=== PATIENT | female | born 1995 | race Caucasian/White ===

== ENCOUNTER 2017-08-10 15:14 | Observation (INO) ==
[2017-08-10 16:30] LABS: Bilirubin,Urine Small (Negative); Blood,Urine Moderate (Negative); Clarity,Urine Cloudy (Clear); Color,Urine Dark Yellow (Yellow); Glucose,Urine (UA) Normal (Normal); Ketones,Urine 80 mg/dL (Negative); Leukocyte Esterase,Urine Large (Negative); Nitrite,Urine Negative (Negative); Protein,Urine Negative (Neg-Trace); Specific Gravity,Urine 1.021 (1.010-1.025); Urobilinogen,Urine Normal (Normal)
[2017-08-10 16:33] LABS: Bacteria,Urine Moderate per hpf (None-Few); Hyaline Casts,Urine None Seen per lpf (None-Few); Squamous Epithelial Cell,Urine Many per lpf (None-Few); WBC,Urine 15-30 per hpf (0-3)
[2017-08-10 17:11] LABS: Basophils % 0.3 %; Eosinophils % 0.4 %; Hematocrit 32.8 % (35.3-44.9); Immature Granulocytes % 0.7 % (0-4); Lymphocytes # 0.7 K/mcL (0.6-4.6); Lymphocytes % 8.9 %; Mean Corpuscular HGB Conc 33.2 g/dL (31.6-35.5); Mean Corpuscular Hemoglobin 29.9 pg (28.0-33.3); Mean Corpuscular Volume 90.1 fL (83.0-100.0); Mean Platelet Volume 10.4 fL (9.4-12.4); Monocytes # 0.6 K/mcL (0.0-1.3); Monocytes % 8.3 %; Neutrophils # 6.1 K/mcL (1.6-8.9); Platelet Count 164 K/mcL (140-400); Red Blood Count 3.64 M/mcL (3.82-4.97); Red Cell Distribution Width 12.6 % (11.5-14.5); Segmented Neutrophils % 81.4 %
[2017-08-10 17:21] LABS: Hemoglobin 10.9 g/dL (11.5-15.4)
[2017-08-10 17:21] LABS: RBC,Urine 0-3 per hpf (0-3)
[2017-08-10 17:30] LABS: Amphetamine Screen,Urine Negative ng/mL (Cutoff=1000); Barbiturate Screen,Urine Negative ng/mL (Cutoff=200); Benzodiazepines Screen,Urine Negative ng/mL (Cutoff=200); Cannabinoid Screen,Urine Negative ng/mL (Cutoff = 50); Cocaine Screen,Urine Negative ng/mL (Cutoff= 300); Opiate Screen,Urine Negative ng/mL (Cutoff=300); Phencyclidine Screen,Urine Negative ng/mL (Cutoff=25)
--- NOTE | 2017-08-10 17:36 | OB/GYN Progress Note ---
Date of Encounter: 08/10/17 Time of Encounter: 17:33 - Assessment and Plan (1) 24 weeks gestation of Current Visit: Yes Status: Acute (2) UTI (urinary tract infection) Current Visit: Yes Status: Acute UA suspicious for UTI. Will send home on Bactrium due to allergies. - CVA tenderness. Discharged home with when to return to triage and call provider. Laboratory Results WBC 7.4 K/mcL (4.3-11.1) 08/10/17 16: RBC 3.64 M/mcL (3.82-4.97) L 08/10/17 16:26 Hgb 10.9 g/dL (11.5-15.4) L D 08/10/17 16: Hct 32.8 % (35.3-44.9) L 08/10/17 16: MCV 90.1 fL (83.0-100.0) 08/10/17 16: MCH 29.9 pg (28.0-33.3) 08/10/17 16: MCHC 33.2 g/dL (31.6-35.5) 08/10/17 16:26 RDW 12.6 % (11.5-14.5) 08/10/17 16:26 Plt Count 164 K/mcL (140-400) 08/10/17 16: MPV 10.4 fL (9.4-12.4) 08/10/17 16: Immature Gran % 0.7 % (0-4) 08/10/17 16: Seg Neutrophils % 81.4 % 08/10/17 16: Lymphocytes % 8.9 % 08/10/17 16: Monocytes % 8.3 % 08/10/17 16:26 Eosinophils % 0.4 % 08/10/17 16: Basophils % 0.3 % 08/10/17 16: Neutrophils # 6.1 K/mcL (1.6-8.9) 08/10/17 16: Lymphocytes # 0.7 K/mcL (0.6-4.6) 08/10/17 16: Monocytes # 0.6 K/mcL (0.0-1.3) 08/10/17 16: Eosinophils # 0.0 K/mcL (0.0-0.6) 08/10/17 16:26 Basophils # 0.0 K/mcL (0.0-0.2) 08/10/17 16:26 Urine Color Dark Yellow (Yellow) 08/10/17 Unknown Urine Clarity Cloudy (Clear) A 08/10/17 Unknown Urine pH 6.0 pH Units (5.0-8.0) 08/10/17 Unknown Ur Specific [place] 1.021 (1.010-1.025) 08/10/17 Unknown Urine Protein Negative mg/dL (Neg-Trace) 08/10/17 Unknown Urine Glucose (UA) Normal mg/dL (Normal) 08/10/17 Unknown Urine Ketones 80 mg/dL (Negative) H 08/10/17 Unknown Urine Blood Moderate (Negative) H 08/10/17 Unknown Urine Nitrite Negative (Negative) 08/10/17 Unknown Urine Bilirubin Small (Negative) H 08/10/17 Unknown Urine Urobilinogen Normal mg/dL (Normal) 08/10/17 Unknown Ur Leukocyte Esterase Large (Negative) H 08/10/17 Unknown Urine Microscopic RBC 0-3 per hpf (0-3) 08/10/17 Unknown Urine Microscopic WBC 15-30 per hpf (0-3) H 08/10/17 Unknown Ur Squamous Epith Cells Many per lpf (None-Few) H 08/10/17 Unknown Urine Bacteria Moderate per hpf (None-Few) H 08/10/17 Unknown Hyaline Casts None Seen per lpf (None-Few) 08/10/17 Unknown Ur Culture Indicated? NO. (NO) 08/10/17 Unknown Urine Opiates Screen Negative ng/mL (Ifsbig=190) 08/10/17 Unknown Ur Barbiturates Screen Negative ng/mL (Ddmuyv=749) 08/10/17 Unknown Ur Phencyclidine Scrn Negative ng/mL (Cutoff=25) 08/10/17 Unknown Ur Amphetamines Screen Negative ng/mL (Ecqlwe=0525) 08/10/17 Unknown U Benzodiazepines Scrn Negative ng/mL (Jjffba=001) 08/10/17 Unknown Urine Cocaine Screen Negative ng/mL (Cutoff= 300) 08/10/17 Unknown U Marijuana (THC) Screen Negative ng/mL (Cutoff = 50) 08/10/17 Unknown Qualifiers: Urinary tract infection type: acute cystitis Hematuria presence: with hematuria Qualified Code(s): N30.01 - Acute cystitis with hematuria Subjective - Subjective Interval history: GP0 24+1 Sent over from office for evaluation of pyelo. Reports occasional movement, denies vaginal bleeding or leaking of fluid. Pt states she has had increased back pain with nausea. No pain or burning with urination. Antepartum ROS: movement normal, no loss of fluid, no vaginal bleeding, no contractions Objective - Vital Signs Vital Signs: Intake and Output 08/10/17 08/10/17 08/10/17 07:59 15:59 23:59 Other: Weight 59.4 kg Patient Weight 08/10/17 23:59 Weight 59.4 kg - Exam FHR: auscultation normal FHR comments: baseline 145 Abdomen: Present: normal appearance, soft, gravid Cervical dilation: Closed Comments: - cva tenderness. - Labs Labs: Abnormal lab results RBC 3.64 M/mcL (3.82-4.97) L 08/10/17 16:26 Hgb 10.9 g/dL (11.5-15.4) L D 08/10/17 16:26 Hct 32.8 % (35.3-44.9) L 08/10/17 16:26 Urine Clarity Cloudy (Clear) A 08/10/17 Unknown Urine Ketones 80 mg/dL (Negative) H 08/10/17 Unknown Urine Blood Moderate (Negative) H 08/10/17 Unknown Urine Bilirubin Small (Negative) H 08/10/17 Unknown Ur Leukocyte Esterase Large (Negative) H 08/10/17 Unknown Urine Microscopic WBC 15-30 per hpf (0-3) H 08/10/17 Unknown Ur Squamous Epith Cells Many per lpf (None-Few) H 08/10/17 Unknown Urine Bacteria Moderate per hpf (None-Few) H 08/10/17 Unknown
== END 2017-08-10 17:45 | disposition home or self-care (01) ==
LOC: 1NENULAB
PROVIDERS: ADMIT Obstetrics & Gynecology; ATTEND Obstetrics & Gynecology

== ENCOUNTER 2017-08-29 01:08 | Observation (INO) ==
[2017-08-29 01:56] LABS: Bilirubin,Urine Negative (Negative); Blood,Urine Negative (Negative); Clarity,Urine Cloudy (Clear); Color,Urine Yellow (Yellow); Glucose,Urine (UA) 100 mg/dL (Normal); Ketones,Urine Negative (Negative); Leukocyte Esterase,Urine Large (Negative); Nitrite,Urine Negative (Negative); PH,Urine 6.5 pH Units (5.0-8.0); Protein,Urine Trace mg/dL (Neg-Trace); Specific Gravity,Urine 1.021 (1.010-1.025); Urobilinogen,Urine Normal (Normal)
[2017-08-29 02:00] LABS: Bacteria,Urine Moderate per hpf (None-Few); Hyaline Casts,Urine None Seen per lpf (None-Few); Squamous Epithelial Cell,Urine Many per lpf (None-Few); WBC,Urine 50-100 per hpf (0-3)
[2017-08-29 02:05] LABS: Amphetamine Screen,Urine Negative ng/mL (Cutoff=1000); Barbiturate Screen,Urine Negative ng/mL (Cutoff=200); Benzodiazepines Screen,Urine Negative ng/mL (Cutoff=200); Cannabinoid Screen,Urine Negative ng/mL (Cutoff = 50); Cocaine Screen,Urine Negative ng/mL (Cutoff= 300); Opiate Screen,Urine Negative ng/mL (Cutoff=300); Phencyclidine Screen,Urine Negative ng/mL (Cutoff=25)
--- NOTE | 2017-08-29 02:05 | OB/GYN Progress Note ---
Date of Encounter: 08/29/17 Time of Encounter: 02:03 - Assessment and Plan (1) 26 weeks gestation of Current Visit: Yes Status: Acute (2) Back pain affecting in second trimester Current Visit: Yes Status: Acute History of CVA tenderness, discussed back pain during recommended position changes and Tylenol, discussed sciatic nerve pain with patient. Discharged home with when to return to triage precautions. Patient verbalizes understanding (3) Decreased movement Current Visit: Yes Status: Acute Patient has felt movement a few times since being in triage. movement heard on monitor by provider Qualifiers: Fetus number: single or unspecified fetus Trimester: second trimester Qualified Code(s): O36.8120 - Decreased movements, second trimester, not applicable or unspecified Subjective - Subjective Interval history: 26+6 presents to triage with complaints of back pain and decreased movement. 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 Patient states she is also having intermittent lower back pain and at times it radiates down her leg. Denies vaginal bleeding or leaking of fluid Antepartum ROS: other, no loss of fluid, no vaginal bleeding, no movement normal (backpain ), no contractions Objective - Vital Signs Vital Signs: Intake and Output 08/28/17 08/28/17 08/29/17 15:59 23:59 07:59 Other: Weight 62.8 kg Patient Weight 08/29/17 23:59 Weight 62.8 kg - Exam FHR: auscultation normal FHR comments: baseline 140 Abdomen: Present: soft, gravid Comments: -cva - Labs Labs: Abnormal lab results Urine Clarity Cloudy (Clear) A 08/29/17 01:44 Urine Glucose (UA) 100 mg/dL (Normal) H 08/29/17 01:44 Ur Leukocyte Esterase Large (Negative) H 08/29/17 01:44
[2017-08-29 02:14] LABS: RBC,Urine 0-3 per hpf (0-3)
== END 2017-08-29 02:09 | disposition home or self-care (01) ==
LOC: 1NENULAB
PROVIDERS: ADMIT Advanced Practice Midwife; ATTEND Advanced Practice Midwife

== ENCOUNTER 2017-09-25 02:56 | Observation (INO) ==
[2017-09-25 03:33] LABS: Bilirubin,Urine Negative (Negative); Blood,Urine Negative (Negative); Clarity,Urine Cloudy (Clear); Color,Urine Yellow (Yellow); Glucose,Urine (UA) Normal (Normal); Ketones,Urine Negative (Negative); Leukocyte Esterase,Urine Moderate (Negative); Nitrite,Urine Negative (Negative); PH,Urine 6.5 pH Units (5.0-8.0); Protein,Urine Negative (Neg-Trace); Specific Gravity,Urine 1.015 (1.010-1.025); Urobilinogen,Urine Normal (Normal)
[2017-09-25 03:35] LABS: Bacteria,Urine None Seen per hpf (None-Few); Hyaline Casts,Urine None Seen per lpf (None-Few); RBC,Urine 0-3 per hpf (0-3); Squamous Epithelial Cell,Urine Many per lpf (None-Few); WBC,Urine 15-30 per hpf (0-3)
[2017-09-25 03:42] LABS: Amphetamine Screen,Urine Negative ng/mL (Cutoff=1000); Barbiturate Screen,Urine Negative ng/mL (Cutoff=200); Benzodiazepines Screen,Urine Negative ng/mL (Cutoff=200); Cannabinoid Screen,Urine Negative ng/mL (Cutoff = 50); Cocaine Screen,Urine Negative ng/mL (Cutoff= 300); Opiate Screen,Urine Negative ng/mL (Cutoff=300); Phencyclidine Screen,Urine Negative ng/mL (Cutoff=25)
--- NOTE | 2017-09-25 04:24 | OB/GYN Progress Note ---
Date of Encounter: 09/25/17 Time of Encounter: 04:22 - Assessment and Plan (1) 30 weeks gestation of Current Visit: Yes Status: Acute (2) Abdominal pain affecting Current Visit: Yes Status: Acute UA negative, rare contractions seen on monitor. cervix closed thick and high. Discharged home with labor and when to return to triage precautions. Patient verbalizes understanding Subjective - Subjective Interval history: 30+5 weeks gestation presents to triage with complaints of abdominal pain. Patient states she has been working this evening and having abdominal pain wrapping around her abdomen at times. She says the pain feels dull and constant, but sometimes comes and goes with abdominal tightening. Patient states she has been up and active around the house today, and then came in to work. She is only had about 1 bottle of water to drink today. Reports good movement, denies vaginal bleeding or leaking of fluid Antepartum ROS: movement normal, contractions (Abdominal pain), no loss of fluid, no vaginal bleeding Objective - Vital Signs Vital Signs: Intake and Output 09/24/17 09/24/17 09/25/17 15:59 23:59 07:59 Other: Weight 64.2 kg Patient Weight 09/25/17 23:59 Weight 64.2 kg - Exam FHR: auscultation normal Abdomen: Present: normal appearance, soft, gravid Cervical dilation: Closed/thick/high - Labs Labs: Abnormal lab results Urine Clarity Cloudy (Clear) A 09/25/17 03:21 Ur Leukocyte Esterase Moderate (Negative) H 09/25/17 03:21 Urine Microscopic WBC 15-30 per hpf (0-3) H 09/25/17 03:21 Ur Squamous Epith Cells Many per lpf (None-Few) H 09/25/17 03:21 Ur Culture Indicated? NO. (NO) A 09/25/17 03:21
== END 2017-09-25 04:33 | disposition home or self-care (01) ==
LOC: 1NENULAB
PROVIDERS: ADMIT Advanced Practice Midwife; ATTEND Advanced Practice Midwife

== ENCOUNTER → 2017-10-16 16:09 | Observation (INO) ==
[2017-10-16 14:59] LABS: Basophils % 0.3 %; Eosinophils # 0.1 K/mcL (0.0-0.6); Eosinophils % 1.1 %; Hematocrit 38.3 % (35.3-44.9); Hemoglobin 12.7 g/dL (11.5-15.4); Immature Granulocytes % 0.6 % (0-4); Lymphocytes # 1.9 K/mcL (0.6-4.6); Lymphocytes % 19.8 %; Mean Corpuscular HGB Conc 33.2 g/dL (31.6-35.5); Mean Corpuscular Volume 90.5 fL (83.0-100.0); Mean Platelet Volume 10.8 fL (9.4-12.4); Monocytes # 0.9 K/mcL (0.0-1.3); Monocytes % 8.7 %; Neutrophils # 6.8 K/mcL (1.6-8.9); Platelet Count 136 K/mcL (140-400); Red Blood Count 4.23 M/mcL (3.82-4.97); Red Cell Distribution Width 13.3 % (11.5-14.5); Segmented Neutrophils % 69.5 %
--- NOTE | 2017-10-16 14:59 | OB/GYN Progress Note ---
Date of Encounter: 10/16/17 Time of Encounter: 14:56 - Assessment and Plan (1) 33 weeks gestation of Current Visit: Yes Status: Acute admitted for observation and iv hydration (2) Nausea Current Visit: Yes Status: Acute IV zofran if needed advance diet as tolerated (3) NST (non-stress test) reactive on surveillance Current Visit: Yes Status: Acute baseline 125 bpm moderate variability +15x15 accels no decels noted Subjective - Subjective Principal diagnosis: dehydration, cramping, sunburn Interval history: Patient is a 22 y/o at 33w5d presents to labor and delivery from OB office for IV hydration. Patient reports she was outside all day yesterday in the sun at [place] and today feels like she is cramping and dehydrated. Patient had sun burn on 60% of her body as well. No blisters noted. Patient reports +FM , denies LOF or VB. Patient reports nausea without vomiting. Denies headache, visual disturbances or epigastric pain. Antepartum ROS: movement normal, no loss of fluid, no vaginal bleeding, no contractions Objective - Vital Signs Vital Signs: Intake and Output 10/15/17 10/16/17 10/16/17 23:59 07:59 15:59 Other: Weight 62.6 kg Patient Weight 10/16/17 23:59 Weight 62.6 kg - Exam FHR: auscultation normal, category 1 FHR comments: FHR baseline 125 bpm moderate variability +15x15 accels no decels noted. Cat 1 tracing Auscultation: bilateral: normal Abdomen: Present: normal appearance, soft, gravid
[2017-10-16 15:05] LABS: Amphetamine Screen,Urine Negative ng/mL (Cutoff=1000); Barbiturate Screen,Urine Negative ng/mL (Cutoff=200); Benzodiazepines Screen,Urine Negative ng/mL (Cutoff=200); Cannabinoid Screen,Urine Negative ng/mL (Cutoff = 50); Cocaine Screen,Urine Negative ng/mL (Cutoff= 300); Opiate Screen,Urine Negative ng/mL (Cutoff=300); Phencyclidine Screen,Urine Negative ng/mL (Cutoff=25)
[2017-10-16 15:26] LABS: Potassium 3.5 mEq/L (3.5-5.1)
[~2017-10-16 16:09] MED LIST: Acetaminophen 325 MG TABLET PO PRN; D5% in Lactated Ringers 1,000 ML IVC SCH; Ondansetron 4 MG/2 ML VIAL IVP PRN; Ringers Solution, Lactated 1,000 ML IVC ONE
== END | disposition home or self-care (01) ==
LOC: 1NENULAB
PROVIDERS: ADMIT Advanced Practice Midwife; ATTEND Advanced Practice Midwife

== ENCOUNTER → 2017-11-03 04:40 | Observation (INO) ==
[2017-11-03 03:29] LABS: Bilirubin,Urine Negative (Negative); Blood,Urine Large (Negative); Clarity,Urine Cloudy (Clear); Color,Urine Yellow (Yellow); Glucose,Urine (UA) Normal (Normal); Ketones,Urine Negative (Negative); Leukocyte Esterase,Urine Large (Negative); Nitrite,Urine Negative (Negative); Protein,Urine Negative (Neg-Trace); Specific Gravity,Urine 1.017 (1.010-1.025); Urobilinogen,Urine Normal (Normal)
[2017-11-03 03:30] LABS: Bacteria,Urine Few per hpf (None-Few); Hyaline Casts,Urine None Seen per lpf (None-Few); RBC,Urine 15-30 per hpf (0-3); Squamous Epithelial Cell,Urine Many per lpf (None-Few)
[2017-11-03 03:38] LABS: Protein/Creatinine Ratio,Urine 0.35 mg/mg (0.00-0.20)
[2017-11-03 03:40] LABS: Amphetamine Screen,Urine Negative ng/mL (Cutoff=1000); Barbiturate Screen,Urine Negative ng/mL (Cutoff=200); Benzodiazepines Screen,Urine Negative ng/mL (Cutoff=200); Cannabinoid Screen,Urine Negative ng/mL (Cutoff = 50); Cocaine Screen,Urine Negative ng/mL (Cutoff= 300); Opiate Screen,Urine Negative ng/mL (Cutoff=300); Phencyclidine Screen,Urine Negative ng/mL (Cutoff=25)
[2017-11-03 03:43] LABS: Calcium Oxalate Crystals,Urine Present
--- NOTE | 2017-11-03 04:39 | OB/GYN Progress Note ---
Date of Encounter: 11/03/17 Time of Encounter: 04:37 - Assessment and Plan (1) 36 weeks gestation of Current Visit: Yes Status: Acute Continue care as scheduled Labor precautions given Discharge home (2) Proteinuria affecting in third trimester Current Visit: Yes Status: Acute 24 hour urine to be returned on Sunday to labor and delivery and have labs drawn (3) UTI (urinary tract infection) during Current Visit: Yes Status: Acute Macrobid 100 mg twice a day 5 days Qualifiers: Trimester: third trimester Qualified Code(s): O23.43 - Unspecified infection of urinary tract in , third trimester Subjective - Subjective Principal diagnosis: proteinuria/uti in Interval history: Ms. Nichols is a 22-year-old at 36 weeks 2 days gestation who presents with complaints of intermittent hazy vision with spots. She denies headaches and epigastric pain. She reports her blood pressures have been well controlled during this . She also complains of frequency, urgency, dysuria. She endorses good movement. Antepartum ROS: new complaints, movement normal, no loss of fluid, no vaginal bleeding, no contractions Objective - Vital Signs Vital Signs: Intake and Output 11/02/17 11/02/17 11/03/17 15:59 23:59 07:59 Other: Weight 62.6 kg Patient Weight 11/03/17 23:59 Weight 62.6 kg - Exam FHR: category 1 FHR comments: Baseline 140 Moderate variability Accelerations present 15 x 15 No decelerations FHR category I Contractions every 5-7 minutes on toco and palpate mild Auscultation: bilateral: normal Abdomen: Present: normal appearance, soft, gravid Uterus: Present: normal, firm - Labs Labs: Abnormal lab results Urine Clarity Cloudy (Clear) A 11/03/17 03:23 Urine Blood Large (Negative) H 11/03/17 03:23 Ur Leukocyte Esterase Large (Negative) H 11/03/17 03:23 Urine Microscopic RBC 15-30 per hpf (0-3) H 11/03/17 03:23 Urine Microscopic WBC 5-15 per hpf (0-3) H 11/03/17 03:23 Ur Squamous Epith Cells Many per lpf (None-Few) H 11/03/17 03:23 Ur Culture Indicated? NO. (NO) A 11/03/17 03:23 Protein/Creatinin Ratio 0.35 mg/mg (0.00-0.20) H 11/03/17 03:23
== END | disposition home or self-care (01) ==
LOC: 1NENULAB
PROVIDERS: ADMIT Obstetrics & Gynecology; ATTEND Obstetrics & Gynecology

== ENCOUNTER → 2017-11-04 03:58 | Observation (INO) ==
--- NOTE | 2017-11-04 03:50 | Discharge Summary ---
Date of Encounter: 11/04/17 Time of Encounter: 03:49 - Discharge Diagnosis (1) 36 weeks gestation of Priority: Primary Status: Acute Comments: admitted for observation (2) Decreased movement Priority: Secondary Status: Acute Comments: reactive nst Qualifiers: Fetus number: single or unspecified fetus Trimester: third trimester Qualified Code(s): O36.8130 - Decreased movements, third trimester, not applicable or unspecified (3) NST (non-stress test) reactive on surveillance Priority: Secondary Status: Acute Comments: FHR 120 bpm moderate variability +15x15 accels no decels noted. No contrations noted. Cat. 1 tracing (4) Proteinuria affecting in third trimester Priority: Secondary Status: Acute Comments: Patient returned 24 hour urine today and lab work was drawn (5) Heartburn during in third trimester Priority: Secondary Status: Acute Comments: RX for pepcid - Discharge Medications Prescriptions: Famotidine [Pepcid] 40 mg PO DAILY 30 Days #30 tablet Home Medications: Escitalopram [Lexapro] 10 mg PO DAILY #7 tablet 04/25/17 [Rx] Ondansetron ODT [Zofran ODT] 4 mg SL Q6HR PRN #10 tab.rapdis 07/15/17 [Rx] Vit/Iron Fumarate/FA [ Tablet] 1 tab PO DAILY 08/10/17 [History ] Ferrous Sulfate 11/03/17 [History] Nitrofurantoin Monohyd/M-Cryst [Macrobid 100 mg Capsule] 100 mg PO BID #10 capsule 11/03/17 [Rx] Famotidine [Pepcid] 40 mg PO DAILY 30 Days #30 tablet 11/04/17 [Rx] Allergies/Adverse Reactions: 3 Allergy/AdvReac Type Severity Reaction Status Date / Time Amoxicillin Allergy Swelling Verified 11/04/17 03:20 of Lip/Tongue/Throat azithromycin Allergy Swelling Verified 11/04/17 03:20 [From Zithromax Z-Robbin] of Lip/Tongue/Throat cephalexin [From Keflex] Allergy Swelling Verified 11/04/17 03:20 of Lip/Tongue/Throat Penicillins Allergy Hives Verified 11/04/17 03:20 prednisone Allergy Swelling Verified 11/04/17 03:20 of Lip/Tongue/Throat Data Procedures and tests throughout hospitalization: Laboratory Tests 07/08/18 03:30 Ur Drug Screen Interp See Below Labs on day of discharge: Labs from last 24 hours 11/04/17 03:30 Ur Drug Screen Interp See Below Date of admission: 11/04/17 03:08 Discharging clinician: Shanell Martines Anticipated date of discharge: 11/04/17 - Patient Status Disposition: Home, Self-Care Condition: Good Functional capacity at discharge: independent ambulation - Discharge Instructions Follow Up With: Erika Powers [Advanced Practice Nurse] - - Diet and Activity Activity: increase activity as tolerated Diet: regular diet Hospital Course [employer] Hospital course: Patient is a 22 y/o at 36w3d presents to labor and delivery to return a 24 hour urine due to an increases protein creat ratio yesterday. Patient denies any headache, dizziness or blurred vision. Patient denies any epigastric pain but does report acid reflux. Patient reports decrease in movement. Patient denies contractions, LOF or VB. Vital signs wnl. NST reactive. Time Attestation: Total time spent providing and/or coordinating discharge services: Time Spent: Less than 30 minutes Exam - Constitutional General appearance IM: A&O X 3, pleasant, answers questions appropriately - Respiratory Respiratory exam: Present: CTAB - Cardiovascular Cardiovascular exam IM: Present: RRR, +S1, +S2 - GI/Abdominal GI/Abdominal exam IM: normal bowel sounds - Additional comments: soft, gravid - Extremities Exam Extremities exam IM: Present: full ROM, normal capillary refill - Neurological Exam Neurological exam: alert, oriented X3, reflexes normal - VTE Reasons for not Prescribing Prophylaxis: Treatment not Indicated - Low risk for VTE
[2017-11-04 03:55] LABS: Amphetamine Screen,Urine Negative ng/mL (Cutoff=1000); Barbiturate Screen,Urine Negative ng/mL (Cutoff=200); Benzodiazepines Screen,Urine Negative ng/mL (Cutoff=200); Cannabinoid Screen,Urine Negative ng/mL (Cutoff = 50); Cocaine Screen,Urine Negative ng/mL (Cutoff= 300); Opiate Screen,Urine Negative ng/mL (Cutoff=300); Phencyclidine Screen,Urine Negative ng/mL (Cutoff=25)
[2017-11-04 06:16] LABS: eGFR For African Americans > 60 (> 60); eGFR For Non-African Americans > 60 (> 60)
[2017-11-04 15:24] LABS: Total Volume 24 Hour,Urine 1.72 Liters (0.60-1.60)
[2017-11-04 15:49] LABS: Protein/Creatinine Ratio,Urine 0.22 mg/mg (0.00-0.20)
== END | disposition home or self-care (01) ==
LOC: 1NENULAB
PROVIDERS: ADMIT Advanced Practice Midwife; ATTEND Advanced Practice Midwife

== ENCOUNTER 2019-07-11 00:29 | Observation (INO) ==
[2019-07-11 01:57] LABS: BUN/Creatinine Ratio 15 (6-26); Blood Urea Nitrogen 15 mg/dL (6-20); Calcium 10.5 mg/dL (8.6-10.3); Carbon Dioxide 27 mEq/L (23-29); Chloride 104 mEq/L (98-107); Glucose 106 mg/dL (70-105); Osmolality,Calculated 289 (280-300); Potassium 3.7 mEq/L (3.5-5.1); Sodium 139 mEq/L (136-145); eGFR For African Americans > 60 (> 60); eGFR For Non-African Americans > 60 (> 60)
[2019-07-11 02:14] LABS: Hematocrit 42.7 % (35.3-44.9); Hemoglobin 14.1 g/dL (11.5-15.4); Mean Corpuscular Hemoglobin 29.8 pg (28.0-33.3); Mean Corpuscular Volume 90.3 fL (83.0-100.0); Mean Platelet Volume 10.2 fL (9.4-12.4); Platelet Count 231 K/mcL (140-400); Red Blood Count 4.73 M/mcL (3.82-4.97); Red Cell Distribution Width 11.8 % (11.5-14.5); White Blood Count 9.6 K/mcL (4.3-11.1)
[2019-07-11] MEDS ORDERED: Isovue-370 500 ML BOTTLE IVP ONE (02:41)
[2019-07-11] MEDS ORDERED: Ketorolac 15 MG/ML VIAL IVP ONE (02:43)
[2019-07-11] MEDS ORDERED: Ondansetron 4 MG/2 ML VIAL IVP PRN (05:50)
[2019-07-11] MEDS ORDERED: Naloxone 0.4 MG/ML INJ IVP PRN (05:50)
[2019-07-11] MEDS ORDERED: 0.9 % Sodium Chloride 1,000 ML IVC SCH (06:00)
[2019-07-11] MEDS ORDERED: Acetaminophen 325 MG TABLET PO PRN (06:00)
[2019-07-11 08:19] LABS: Amphetamine Screen,Urine Negative ng/mL (Cutoff=1000); Barbiturate Screen,Urine Negative ng/mL (Cutoff=200)
[2019-07-11 08:20] LABS: Benzodiazepines Screen,Urine Negative ng/mL (Cutoff=300); Cannabinoid Screen,Urine Negative ng/mL (Cutoff = 50); Cocaine Screen,Urine Negative ng/mL (Cutoff= 300); Opiate Screen,Urine Negative ng/mL (Cutoff=300); Phencyclidine Screen,Urine Negative ng/mL (Cutoff=25)
[2019-07-11] MEDS: Ketorolac 15 MG/ML VIAL IVP SCH ×2 (12:41→19:31)
[2019-07-12] MEDS: Ketorolac 15 MG/ML VIAL IVP SCH ×2 (00:05→05:53)
[2019-07-12 06:58] VITALS: BP 94/58
[2019-07-13 01:45] LABS: Alanine Aminotransferase 9 Units/L (7-52); Albumin 4.1 g/dL (3.5-5.7); Albumin/Globulin Ratio 1.7 (1.1-2.2); Alkaline Phosphatase 45 Units/L (34-104); Aspartate Amino Transferase 14 Units/L (13-39); BUN/Creatinine Ratio 17 (6-26); Bilirubin,Total 0.8 mg/dL (0.3-1.0); Blood Urea Nitrogen 15 mg/dL (6-20); Calcium 9.4 mg/dL (8.6-10.3); Carbon Dioxide 28 mEq/L (23-29); Chloride 104 mEq/L (98-107); Chol/HDL Ratio 3.1 (0-4.9); Cholesterol 119 mg/dL (< 200); Globulin 2.4 g/dL (2.4-3.5); Glucose 133 mg/dL (70-105); HDL Cholesterol 39 mg/dL (40-59); LDL Cholesterol,Calculated 65 mg/dL (0-99); Magnesium 1.8 mg/dL (1.6-2.6); Osmolality,Calculated 291 (280-300); Potassium 3.6 mEq/L (3.5-5.1); Sodium 139 mEq/L (136-145); Total Protein 6.5 g/dL (6.4-8.9); Triglycerides 75 mg/dL (< 150); eGFR For African Americans > 60 (> 60); eGFR For Non-African Americans > 60 (> 60)
[2019-07-13 02:27] LABS: Phosphorous 3.6 mg/dL (2.7-4.5)
== END 2019-07-12 19:00 | disposition home or self-care (01) ==
LOC: EMEROOARM 00:29 → 3NENU 00:29 → SUATTDRO 05:56 → 3NENU 06:40
PROVIDERS: ADMIT Student in an Organized Health Care Education/Training Program; ATTEND Student in an Organized Health Care Education/Training Program

== ENCOUNTER → 2019-09-30 03:39 | Observation (INO) ==
[2019-09-30 02:43] LABS: Bilirubin,Urine Negative (Negative); Blood,Urine Negative (Negative); Clarity,Urine Cloudy (Clear); Color,Urine Yellow (Yellow); Glucose,Urine (UA) 100 mg/dL (Normal); Ketones,Urine Negative (Negative); Leukocyte Esterase,Urine Small (Negative); Nitrite,Urine Negative (Negative); PH,Urine 6.5 pH Units (5.0-8.0); Protein,Urine Negative (Neg-Trace); Specific Gravity,Urine 1.026 (1.010-1.025); Urobilinogen,Urine Normal (Normal)
[2019-09-30 02:44] LABS: Bacteria,Urine Few per hpf (None-Few); Hyaline Casts,Urine None Seen per lpf (None-Few); RBC,Urine 0-3 per hpf (0-3); Squamous Epithelial Cell,Urine Many per lpf (None-Few)
== END | disposition home or self-care (01) ==
LOC: 1NENULAB
PROVIDERS: ADMIT Obstetrics & Gynecology; ATTEND Obstetrics & Gynecology

== ENCOUNTER → 2019-12-05 03:00 | Observation (INO) ==
[2019-12-05 00:19] LABS: Bacteria,Urine Few per hpf (None-Few); Bilirubin,Urine Negative (Negative); Blood,Urine Moderate (Negative); Clarity,Urine Clear (Clear); Color,Urine Yellow (Yellow); Glucose,Urine (UA) Normal (Normal); Ketones,Urine Negative (Negative); Leukocyte Esterase,Urine Small (Negative); Mucus,Urine Few per lpf (None-Few); Nitrite,Urine Negative (Negative); Protein,Urine 30 mg/dL (Neg-Trace); RBC,Urine 50-100 per hpf (0-3); Specific Gravity,Urine > 1.030 (1.010-1.025); Squamous Epithelial Cell,Urine Few per hpf (None-Few)
[2019-12-05 01:38] LABS: Basophils % 0.3 %; Eosinophils # 0.1 K/mcL (0.0-0.6); Eosinophils % 0.6 %; Hematocrit 35.9 % (35.3-44.9); Immature Granulocytes % 0.3 % (0-4); Lymphocytes # 2.3 K/mcL (0.6-4.6); Lymphocytes % 25.9 %; Mean Corpuscular HGB Conc 33.4 g/dL (31.6-35.5); Mean Corpuscular Hemoglobin 30.2 pg (28.0-33.3); Mean Corpuscular Volume 90.4 fL (83.0-100.0); Mean Platelet Volume 10.5 fL (9.4-12.4); Monocytes # 0.7 K/mcL (0.0-1.3); Monocytes % 8.4 %; Neutrophils # 5.6 K/mcL (1.6-8.9); Platelet Count 183 K/mcL (140-400); Red Blood Count 3.97 M/mcL (3.82-4.97); Red Cell Distribution Width 12.6 % (11.5-14.5); Segmented Neutrophils % 64.5 %; White Blood Count 8.7 K/mcL (4.3-11.1)
[~2019-12-05 03:00] MED LIST changes: -Acetaminophen 325 MG TABLET PO PRN; -D5% in Lactated Ringers 1,000 ML IVC SCH; -Ondansetron 4 MG/2 ML VIAL IVP PRN
== END | disposition home or self-care (01) ==
LOC: 1NENULAB
PROVIDERS: ADMIT Registered Nurse; ATTEND Registered Nurse

== ENCOUNTER 2020-02-13 16:09 | Inpatient (IN) ==
[2020-02-13] MEDS ORDERED: 0.9 % Sodium Chloride 1,000 ML IVC ONE (16:29)
[2020-02-13] MEDS ORDERED: *HR* Promethazine 25 MG/ML VIAL IVP ONE (16:43)
[2020-02-13 17:14] LABS: Basophils % 0.4 %; Hematocrit 31.8 % (35.3-44.9); Immature Granulocytes % 0.9 % (0-4); Lymphocytes # 0.7 K/mcL (0.6-4.6); Lymphocytes % 10.6 %; Mean Corpuscular HGB Conc 32.1 g/dL (31.6-35.5); Mean Corpuscular Hemoglobin 30.2 pg (28.0-33.3); Mean Corpuscular Volume 94.1 fL (83.0-100.0); Mean Platelet Volume 10.7 fL (9.4-12.4); Monocytes # 0.8 K/mcL (0.0-1.3); Neutrophils # 5.2 K/mcL (1.6-8.9); Platelet Count 131 K/mcL (140-400); Red Blood Count 3.38 M/mcL (3.82-4.97); Red Cell Distribution Width 12.5 % (11.5-14.5); Segmented Neutrophils % 76.1 %; White Blood Count 6.8 K/mcL (4.3-11.1)
[2020-02-13 17:18] LABS: Hemoglobin 10.2 g/dL (11.5-15.4)
[2020-02-13 17:32] LABS: BUN/Creatinine Ratio 12 (6-26); Blood Urea Nitrogen 7 mg/dL (6-20); Calcium 8.6 mg/dL (8.6-10.3); Carbon Dioxide 23 mEq/L (23-29); Chloride 104 mEq/L (98-107); Glucose 88 mg/dL (70-105); Osmolality,Calculated 275 (280-300); Potassium 3.5 mEq/L (3.5-5.1); Sodium 134 mEq/L (136-145); eGFR For African Americans > 60 (> 60); eGFR For Non-African Americans > 60 (> 60)
[2020-02-13] MEDS ORDERED: Ondansetron 4 MG/2 ML VIAL IVP ONE (18:01)
[2020-02-13 18:04] LABS: Bacteria,Urine Few per hpf (None-Few); Bilirubin,Urine Negative (Negative); Blood,Urine Negative (Negative); Clarity,Urine Turbid (Clear); Color,Urine Yellow (Yellow); Glucose,Urine (UA) Normal (Normal); Ketones,Urine Trace mg/dL (Negative); Leukocyte Esterase,Urine Large (Negative); Mucus,Urine Few per lpf (None-Few); Nitrite,Urine Negative (Negative); PH,Urine 6.5 pH Units (5.0-8.0); Protein,Urine Trace mg/dL (Neg-Trace); Specific Gravity,Urine 1.015 (1.010-1.025); Squamous Epithelial Cell,Urine Moderate per hpf (None-Few); Urobilinogen,Urine Normal (Normal); WBC,Urine 15-30 per hpf (0-3)
[2020-02-13] MEDS ORDERED: cefTRIAXone 1,000 MG in 0.9 % Sodium Chloride Mini Bag 100 ML IVPB ONE (18:34)
[2020-02-13] MEDS ORDERED: Pyridoxine (B-6) 100 MG/ML VIAL IVP ONE (18:45)
[2020-02-13] MEDS ORDERED: Thiamine (B-1) 100 MG, Folic Acid 1 MG, MVI, adult with vitamin K 10 ML in 0.9 % Sodi... IVPB ONE (18:45)
[2020-02-13 19:50] LABS: Adenovirus Not Detected (Not Detect); Coronavirus 229E Not Detected (Not Detect); Coronavirus HKU1 Not Detected (Not Detect); Coronavirus NL63 Not Detected (Not Detect); Coronavirus OC43 Not Detected (Not Detect)
[2020-02-13 19:51] LABS: Bordetella Pertussis Not Detected (Not Detect); Chlamydophila pneumoniae Not Detected (Not Detect); Human Metapneumovirus Not Detected (Not Detect); Human Rhinovirus/Enterovirus Not Detected (Not Detect); Influenza A Subtype 2009 H1 Not Detected (Not Detect); Influenza B Not Detected (Not Detect); Mycoplasma pneumoniae Not Detected (Not Detect); Parainfluenza Virus 1 Not Detected (Not Detect); Parainfluenza Virus 2 Not Detected (Not Detect); Parainfluenza Virus 3 Not Detected (Not Detect); Parainfluenza Virus 4 Not Detected (Not Detect); Respiratory Syncytial Virus Not Detected (Not Detect); SARS-CoV-2 DETECTED (Not Detect)
[2020-02-13 22:34] LABS: Activated Partial Thrombo Time 26.4 Seconds (26.0-36.0); Prothrombin Time 11.9 Seconds (9.4-12.1)
[2020-02-13] MEDS: Ringers Solution, Lactated 1,000 ML IVC SCH (23:45)
[2020-02-13] MEDS: Metoclopramide 10 MG/2 ML VIAL IVP SCH (23:47)
[2020-02-13 23:56] LABS: Alanine Aminotransferase 15 Units/L (7-52); Albumin 3.1 g/dL (3.5-5.7); Albumin/Globulin Ratio 1.1 (1.1-2.2); Alkaline Phosphatase 153 Units/L (34-104); Aspartate Amino Transferase 23 Units/L (13-39); Bilirubin,Direct 0.1 mg/dL (0.0-0.2); Bilirubin,Indirect 0.6 mg/dL (0.0-1.0); Bilirubin,Total 0.7 mg/dL (0.3-1.0); C-Reactive Protein 45 mg/L (Less than 10); Globulin 2.7 g/dL (2.4-3.5); Lactate Dehydrogenase 158 Units/L (140-271); Total Protein 5.8 g/dL (6.4-8.9)
[2020-02-14] MEDS: Ondansetron 4 MG/2 ML VIAL IVP SCH ×3 (02:08→11:40)
[2020-02-14] MEDS: *HR* Promethazine 25 MG/ML VIAL IVP SCH ×4 (02:48→21:31)
[2020-02-14] MEDS: *HR* Enoxaparin 40 MG/0.4 ML SYRINGE SQ SCH (05:30)
[2020-02-14] MEDS ORDERED: Famotidine 20 MG/2 ML VIAL IVP SCH (06:00)
[2020-02-14] MEDS: Metoclopramide 10 MG/2 ML VIAL IVP SCH ×2 (07:22→11:40)
[2020-02-14] MEDS: Ringers Solution, Lactated 1,000 ML IVC SCH ×2 (08:03→16:42)
[2020-02-14] MEDS: Ondansetron ODT 4 MG TAB.RAPDIS SL SCH ×2 (18:36→21:31)
[2020-02-14] MEDS: Famotidine 20 MG TABLET PO SCH (21:31)
[2020-02-15] MEDS: Ringers Solution, Lactated 1,000 ML IVC SCH ×2 (00:55→12:43)
[2020-02-15] MEDS: *HR* Enoxaparin 40 MG/0.4 ML SYRINGE SQ SCH (05:54)
[2020-02-15] MEDS: *HR* Promethazine 25 MG/ML VIAL IVP SCH ×3 (06:41→15:24)
[2020-02-15] MEDS: Ondansetron ODT 4 MG TAB.RAPDIS SL SCH ×2 (06:44→12:43)
[2020-02-15] MEDS: Famotidine 20 MG TABLET PO SCH (07:53)
[2020-02-15] MEDS ORDERED: Ringers Solution, Lactated 500 ML IVC ONE (14:07)
[2020-02-15] MEDS ORDERED: Dexamethasone 4 MG/ML VIAL IVP SCH (15:15)
[2020-02-15] MEDS ORDERED: cefTRIAXone 1,000 MG in Water for inj. (sterile) 10 ML IVP SCH (16:00)
[2020-02-15 16:01] VITALS: BP 102/57
[2020-02-15 17:24] LABS: Hematocrit 28.7 % (35.3-44.9); Hemoglobin 9.1 g/dL (11.5-15.4); Mean Corpuscular HGB Conc 31.7 g/dL (31.6-35.5); Mean Corpuscular Hemoglobin 29.4 pg (28.0-33.3); Mean Corpuscular Volume 92.6 fL (83.0-100.0); Mean Platelet Volume 10.6 fL (9.4-12.4); Platelet Count 129 K/mcL (140-400); Red Cell Distribution Width 12.5 % (11.5-14.5); White Blood Count 5.3 K/mcL (4.3-11.1)
[2020-02-15 17:29] LABS: Prothrombin Time 11.7 Seconds (9.4-12.1)
[2020-02-15 17:46] LABS: Alanine Aminotransferase 14 Units/L (7-52); Albumin 2.5 g/dL (3.5-5.7); Alkaline Phosphatase 139 Units/L (34-104); Aspartate Amino Transferase 19 Units/L (13-39); BUN/Creatinine Ratio 7 (6-26); Bilirubin,Direct 0.3 mg/dL (0.0-0.2); Bilirubin,Indirect 0.5 mg/dL (0.0-1.0); Bilirubin,Total 0.8 mg/dL (0.3-1.0); Blood Urea Nitrogen 4 mg/dL (6-20); C-Reactive Protein 50 mg/L (Less than 10); Calcium 7.7 mg/dL (8.6-10.3); Carbon Dioxide 22 mEq/L (23-29); Chloride 108 mEq/L (98-107); Globulin 2.4 g/dL (2.4-3.5); Glucose 79 mg/dL (70-105); Lactate Dehydrogenase 124 Units/L (140-271); Magnesium 1.4 mg/dL (1.6-2.6); Osmolality,Calculated 282 (280-300); Potassium 3.5 mEq/L (3.5-5.1); Sodium 138 mEq/L (136-145); Total Protein 4.9 g/dL (6.4-8.9); eGFR For African Americans > 60 (> 60); eGFR For Non-African Americans > 60 (> 60)
[2020-02-15 18:03] LABS: Ferritin 13 ng/mL (10-120)
== END 2020-02-15 19:30 | disposition short-term general hospital (02) | DRG 566 ==
LOC: EMEROOARM 16:09 → 2NENU 16:09
PROVIDERS: ADMIT Advanced Practice Midwife; ATTEND Advanced Practice Midwife